=== PATIENT | female | born 1990 | race African-American/Black ===

== ENCOUNTER 2018-01-17 10:01 | Emergency (ER) | payer BC ==
--- NOTE | 2018-01-17 11:01 | EDM.PDOC ---
ED HPI GENERAL MEDICAL PROBLEM - General Chief Complaint: Lower Extremity Injury/Pain Stated Complaint: RIGHT ANKLE INJURY Time Seen by Provider: 01/17/18 10:33 Source of Information: Reports: Patient History Limitations: Reports: No Limitations - History of Present Illness INITIAL COMMENTS - FREE TEXT/NARRATIVE: The patient presents with right ankle injury. She was exercising and she twisted her right ankle. It hurts to put any weight on it. She has no other injuries. Onset: Sudden Duration: Minutes: Location: Reports: Lower Extremity, Right (ankle) Quality: Reports: Sharp Severity: Moderate Improves with: Reports: Immobilization Worsens with: Reports: Movement Context: Reports: Activity Associated Symptoms: Reports: No Other Symptoms Right Ankle Pain Score (Numeric/FACES): 8 - Related Data Allergies Allergy/AdvReac Type Severity Reaction Status Date / Time No Known Allergies Allergy Verified 01/17/18 10:29 Home Meds: Home Meds . [No Known Home Meds] 01/17/18 [History] Past Medical History - Past Health History Medical/Surgical History: Denies Medical/Surgical History Social & Family History - Family History Family Medical History: Noncontributory - Tobacco Use Smoking Status *Q: Current Every Day Smoker Years of Tobacco use: 10 Packs/Tins Daily: 0.2 Second Hand Smoke Exposure: No - Caffeine Use Caffeine Use: Reports: Soda - Recreational Drug Use Recreational Drug Use: No Review of Systems - Review of Systems Review Of Systems: See Below Constitutional: Reports: No Symptoms Eyes: Reports: No Symptoms Ears: Reports: No Symptoms Nose: Reports: No Symptoms Mouth/Throat: Reports: No Symptoms Respiratory: Reports: No Symptoms Cardiovascular: Reports: No Symptoms GI/Abdominal: Reports: No Symptoms Genitourinary: Reports: No Symptoms Musculoskeletal: Reports: Other (Right ankle pain) ED EXAM, GENERAL - Physical Exam Exam: See Below Exam Limited By: No Limitations General Appearance: Alert, No Apparent Distress Ears: Normal External Exam Nose: Normal Inspection Head: Atraumatic, Normocephalic Neck: Normal Inspection Respiratory/Chest: No Respiratory Distress Extremities: Other (No edema to her ankle but she does have tenderness to the lateral ankle. Good sensation and pulses distally.) Course - Vital Signs Last Recorded V/S: Last Vital Signs Temp 98.2 F 01/17/18 10:30 Pulse 82 01/17/18 10:30 Resp 14 01/17/18 10:30 BP 123/88 01/17/18 10:30 Pulse Ox 97 01/17/18 10:30 - Orders/Labs/Meds Orders: Active Orders 24 hr Category Date Time Status Ankle Min 3V Rt [CR] Stat Exams 01/17/18 10:35 Taken Durable Medical Equipment for Discharge [DME for Oth 01/17/18 11:04 Ordered Discharge] [COMM] Stat - Re-Assessments/Exams Free Text/Narrative Re-Assessment/Exam: 01/17/18 11:04 The x-ray looks good. She has an ankle sprain. I will get her some crutches and a stirrup splint. Departure - Departure Time of Disposition: 11:05 Disposition: Home, Self-Care 01 Condition: Good Clinical Impression: Sprain of right ankle Qualifiers: Encounter type: initial encounter Involved ligament of ankle: unspecified ligament Qualified Code(s): S93.401A - Sprain of unspecified ligament of right ankle, initial encounter - Discharge Information Referrals: PCP,None [Primary Care Provider] - Jia Lopez PA [[employer] [employer]] - 1 Week Forms: ED Department Discharge Additional Instructions: Ice your ankle for 15 minutes 3 times per day for 2 days. Elevate your ankle above your heart as much as you can for 2 days to reduce the swelling. Wear the splint and use the crutches as needed for pain. Follow up with Jia Lopez if you are not better in 1 to 2 weeks. Please return if you are worse. - My Orders Last 24 Hours: My Active Orders 01/17/18 10:35 Ankle Min 3V Rt [CR] Stat 01/17/18 11:04 Durable Medical Equipment for Discharge [DME for Discharge] [COMM] Stat - Assessment/Plan Last 24 Hours: My Active Orders 01/17/18 10:35 Ankle Min 3V Rt [CR] Stat 01/17/18 11:04 Durable Medical Equipment for Discharge [DME for Discharge] [COMM] Stat
--- NOTE | 2018-01-18 07:48 | CR ---
Right ankle: Four views of the right ankle were obtained. Comparison: No previous study. Ankle mortise is symmetric. No fracture, dislocation or other bony abnormality is seen. Impression: 1. No acute bony abnormality is identified on right ankle exam. Diagnostic code #1
== END 2018-01-17 11:15 | disposition home or self-care (01) ==
LOC: JD.ED 10:01
DX: S93.401A Sprain of unspecified ligament of right ankle, initial encounter (principal); F17.210 Nicotine dependence, cigarettes, uncomplicated; X50.9XXA Other and unspecified overexertion or strenuous movements or postures, initial encounter
CPT/HCPCS: 73610-26-RT; 73610-RT; 99283